=== PATIENT | female | born 1990 | race American Indian/Alaskan Native ===

== ENCOUNTER 2017-02-11 16:24 | Emergency (ER) | payer OTHER ==
[2017-02-11 16:29] VITALS: BMI 25.0
[2017-02-11 16:33] VITALS: BP 126/84; PULSE 72; RESP 16; TEMP 98.6; O2SAT 99
--- NOTE | 2017-02-11 16:33 | ED PDOC ---
Arrival/HPI - General Time Seen by Provider: 02/11/17 16:30 Historian: Patient - History of Present Illness Narrative History of Present Illness (Text): 02/11/17 16:30 26yo female with no PMhx biba for a dog bite to her left lateral leg this afternoon. 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 Notes that she is not up to date with her TD vaccine. She will find out from the dog exposure machine operator if the dog is vaccinated. Past Medical History - Provider Review Nursing Documentation Reviewed: Yes Family/Social History - Physician Review Nursing Documentation Reviewed: Yes Family/Social History: Unknown Family HX Allergies/Home Meds Allergies/Adverse Reactions: Allergies No Known Allergies Allergy (Verified 02/11/17 16:34) Review of Systems - Physician Review All systems were reviewed & negative as marked: Yes - Review of Systems Constitutional: Normal Eyes: Normal ENT: Normal Respiratory: Normal Cardiovascular: Normal Gastrointestinal: Normal Genitourinary Female: Normal Musculoskeletal: Normal Skin: Other (dog bite to left leg) Neurological: Normal Endocrine: Normal Hemo/Lymphatic: Normal Psychiatric: Normal Physical Exam Vital Signs Reviewed: Yes Vital Signs Temp Pulse Resp BP Pulse Ox 02/11/17 16:29 98.6 F 72 16 126/84 99 Temperature: Afebrile Blood Pressure: Normal Pulse: Regular Respiratory Rate: Normal Appearance: Positive for: Well-Appearing, Non-Toxic, Comfortable Pain Distress: None Mental Status: Positive for: Alert and Oriented X 3 - Systems Exam Head: Present: Atraumatic, Normocephalic Pupils: Present: PERRL Extroacular Muscles: Present: EOMI Conjunctiva: Present: Normal Mouth: Present: Moist Mucous Membranes Neck: Present: Normal Range of Motion Respiratory/Chest: Present: Clear to Auscultation, Good Air Exchange. No: Respiratory Distress, Accessory Muscle Use Cardiovascular: Present: Regular Rate and Rhythm, Normal S1, S2. No: Murmurs Abdomen: Present: Normal Bowel Sounds. No: Tenderness, Distention, Peritoneal Signs Back: Present: Normal Inspection Upper Extremity: Present: Normal Inspection. No: Cyanosis, Edema Lower Extremity: No: Edema, CALF TENDERNESS Neurological: Present: GCS=15, CN II-XII Intact, Speech Normal Skin: Present: Warm, Dry, Normal Color, Other (Puncture wound noted on lateral proximal left lower leg). No: Rashes Psychiatric: Present: Alert, Oriented x 3, Normal Insight, Normal Concentration Medical Decision Making ED Course and Treatment: 02/11/17 16:32 wound cleaned with peroxide. Bacitracine applied and dressed. TD vaccine ordered Pt placed on prophylactic antibiotic Referred to her PMD she will verify the dog vaccination status. 02/11/17 16:39 She verified that the dog is vaccinated - Medication Orders Current Medication Orders: Amoxicillin/Clavulanate Potassium (Augmentin 875 Mg-125 Mg Tab) 1 tab PO STAT STA PRN Reason: Protocol Stop: 02/11/17 16:36 Tetanus/Reduced Diphtheria/Acell Pertussis (Boostrix Vaccine Inj) 0.5 ml IM .ONCE ONE Stop: 02/11/17 16:37 Disposition/Present on Arrival - Present on Arrival Any Indicators Present on Arrival: No History of DVT/PE: No History of Uncontrolled Diabetes: No Urinary Catheter: No History of Decub. Ulcer: No History Surgical Site Infection Following: None - Disposition Have Diagnosis and Disposition been Completed?: Yes Diagnosis: Dog bite Disposition: HOME/ ROUTINE Disposition Time: 16:40 Patient Plan: Discharge Condition: STABLE Discharge Instructions (ExitCare): Animal Bite (ED) Additional Instructions: Keep wound clean and dry follow up with your doctor Return to ED for nay new or worsening symptoms Prescriptions: Amoxicillin/Clavulanate [Augmentin 875 MG-125 MG] 1 tab PO BID #20 tab Referrals: [facility] [Outside] - Follow up with primary
[2017-02-11] MEDS ORDERED: Amoxicillin-Clav 875-125 mg Tab PO STA (16:35)
[2017-02-11] MEDS ORDERED: TDAP Vaccine 0.5 mL Syr IM ONE (16:36)
== END 2017-02-11 16:53 | disposition home or self-care (01) ==
LOC: ED 16:24
DX: S81.852A Open bite, left lower leg, initial encounter (principal); W54.0XXA Bitten by dog, initial encounter; Z23 Encounter for immunization